=== PATIENT | male | born 1980 | race Caucasian/White ===

== ENCOUNTER 2018-02-14 02:34 | Emergency (ER) | payer MEDICAID ==
[~2018-02-14] VITALS: Ht 185.4 cm; Wt 113.6 kg
[2018-02-14 02:38] VITALS: BP 137/82; Ht 185.4 cm; Wt 113.6 kg
[2018-02-14] MEDS ORDERED: PROZAC20 MG PO (02:49)
== END 2018-02-14 03:07 | disposition home or self-care (01) ==
LOC: D.ER 02:34
DX: Z86.59 Personal history of other mental and behavioral disorders (principal); F17.200 Nicotine dependence, unspecified, uncomplicated

== ENCOUNTER 2018-12-06 07:26 | Emergency (ER) | payer MEDICAID ==
[~2018-12-06] VITALS: Ht 185.4 cm; Wt 118.2 kg
[~2018-12-06 07:26] MED LIST: PROZAC20 MG PO
[2018-12-06 07:30] VITALS: Ht 185.4 cm; Wt 118.2 kg
[2018-12-06 07:55] LABS: BASOPHILS 0.2 % (0-2); EOSINOPHILS 0.8 % (0-7); HEMATOCRIT 42.8 % (42.0-54.0); HEMOGLOBIN 15.5 g/dL (13.5-17.5); IMMATURE GRANULOCYTES 0.3 % (0-5); LYMPHOCYTES 23.9 % (15-50); MCH 30.3 pg (26.0-34.0); MCHC 36.2 g/dL (31.0-37.0); MCV 83.8 fL (80.0-100.0); MEAN PLATELET VOLUME 9.1 fL (7.4-10.4); MONOCYTES 5.6 % (2-11); NEUTROPHILS 69.2 % (40-80); PLATELET COUNT 272 10x3/uL (130-400); RBC 5.11 10x6/uL (4.20-6.10); RDW 13.4 % (11.5-14.5); WBC 10.9 10x3/uL (4.8-10.8)
[2018-12-06 08:03] LABS: ANION GAP 12.1 mmol/L (8-16); CALCIUM 9.3 mg/dL (8.5-10.1); CREATININE - SERUM 1.2 mg/dL (0.6-1.3); POTASSIUM - SERUM 3.1 mmol/L (3.5-5.1)
[2018-12-06 08:03] LABS: COLOR YELLOW (YELLOW)
[2018-12-06 08:04] LABS: APPEARANCE CLOUDY (CLEAR); BILIRUBIN NEGATIVE (NEGATIVE); GLUCOSE NEGATIVE (NEGATIVE); KETONE NEGATIVE (NEGATIVE); NITRITE NEGATIVE (NEGATIVE); PROTEIN 1+ mg/dL (NEGATIVE); SPECIFIC GRAVITY 1.025 (1.005-1.020); UROBILINOGEN NORMAL (NORMAL)
[2018-12-06 08:08] LABS: BACTERIA FEW /hpf (NEGATIVE); EPITHELIAL CELLS OCC /hpf (0-5); GRANULAR CAST OCC /lpf (NONE SEEN); MUCUS >1+ /lpf (NONE SEEN); RED CELLS - URINE RARE /hpf (0-5); WHITE CELLS - URINE 0-5 /hpf (NEGATIVE)
[2018-12-06 08:09] LABS: AMORPHOUS SEDIMENT >1+ /lpf (NONE SEEN)
[2018-12-06 08:11] LABS: UDS - AMPHET NEGATIVE QUAL (NEGATIVE); UDS - BARB NEGATIVE QUAL (NEGATIVE); UDS - BENZO NEGATIVE QUAL (NEGATIVE); UDS - COCAINE NEGATIVE QUAL (NEGATIVE); UDS - OPIATE NEGATIVE QUAL (NEGATIVE); UDS - PCP NEGATIVE QUAL (NEGATIVE); UDS - THC POSITIVE QUAL (NEGATIVE)
[2018-12-06 08:13] LABS: BILIRUBIN - TOTAL 0.46 mg/dL (0.2-1.3); PROTEIN - SERUM 8.3 g/dL (6.4-8.2); TROPONIN-I 0.022 ng/mL (0.000-0.060)
[2018-12-06] MEDS ORDERED: PROTONIX40 MG PO (10:23)
[2018-12-06] MEDS ORDERED: CARAFATE1 G PO (10:23)
[2018-12-06 10:37] VITALS: BP 144/94
== END 2018-12-06 10:37 | disposition home or self-care (01) ==
LOC: D.ER 07:26
PROVIDERS: Family Medicine
DX: K29.70 Gastritis, unspecified, without bleeding (principal); R10.9 Unspecified abdominal pain